=== PATIENT | female | born 1955 | race Two or more races ===

== ENCOUNTER 2019-02-27 17:49 | Emergency (ER) | payer MEDICARE, MEDICAID ==
[~2019-02-27] VITALS: Ht 152.4 cm; Wt 78.9 kg
[2019-02-27] MEDS ORDERED: ONDANSETRON ODT 4 MG PO ONE (19:30)
[2019-02-27 19:54] LABS: ALANINE AMINOTRANSFERASE 24 U/L (12-78); ALBUMIN 3.8 g/dL (3.4-5.0); ANION GAP 4 mmol/L (5-15); CHLORIDE 103 mmol/L (98-107); CREATININE 1.07 mg/dL (0.55-1.02)
[2019-02-27 19:56] LABS: ALKALINE PHOSPHATASE 100 U/L (45-117); BILIRUBIN,TOTAL 0.3 mg/dL (0.2-1.0); TOTAL PROTEIN 7.6 g/dL (6.4-8.2)
[2019-02-27 19:58] LABS: BASOPHILS # (AUTO) 0.02 x10^3/uL (0-0.1); BASOPHILS % (AUTO) 0 % (0-1); EOSINOPHILS # (AUTO) 0.18 x10^3/uL (0-0.4); EOSINOPHILS % (AUTO) 3 % (1-7); LYMPHOCYTES # (AUTO) 2.38 x10^3/uL (1-3.4); LYMPHOCYTES % (AUTO) 34 % (22-44); MD NO; MEAN CORPUSCULAR HEMOGLOBIN 31.1 pg (27.0-34.8); MEAN CORPUSCULAR HGB CONC 33.2 g/dL (32.4-35.8); MEAN CORPUSCULAR VOLUME 93.6 fL (80-100); MEAN PLATELET VOLUME 6.8 fL (7.4-10.4); MONOCYTES # (AUTO) 0.77 x10^3/uL (0.2-0.8); MONOCYTES % (AUTO) 11 % (2-9); NEUTROPHILS # (AUTO) 3.63 x10^3/uL (1.8-6.8); NEUTROPHILS % (AUTO) 52 % (42-75); PLATELET COUNT 367 x10^3/uL (130-400); RED BLOOD COUNT 4.18 x10^6/uL (3.82-5.3); RED CELL DISTRIBUTION WIDTH 12.8 % (9.6-15.2)
[2019-02-27] MEDS ORDERED: ONDANSETRON ODT 4 MG ONE (20:14)
[2019-02-27 21:14] LABS: MICROSCOPIC AUTO
[2019-02-27 21:15] LABS: CULTURE INDICATED? NO
[2019-02-27 21:30] VITALS: BP 137/72
== END 2019-02-27 21:32 | disposition home or self-care (01) ==
LOC: ED 20:20
DX: R19.7 Diarrhea, unspecified (principal); R10.32 Left lower quadrant pain; R10.2 Pelvic and perineal pain; I10 Essential (primary) hypertension; Z87.891 Personal history of nicotine dependence
CPT/HCPCS: 36415; 74176; 80053; 81001; 85025; 99284; Q0162